=== PATIENT | male | born 1980 | race Caucasian/White ===

== ENCOUNTER 2017-02-16 19:41 | Emergency (ER) | payer OTHER ==
[2017-02-16 21:26] VITALS: BP 130/75
== END 2017-02-16 21:26 | disposition home or self-care (01) ==
LOC: ED 19:41
PROC: 3E0F7GC Introduction of Other Therapeutic Substance into Respiratory Tract, Via Natural or Artificial Opening (ICD-10-PCS; principal; 2017-02-16)
DX: J45.901 Unspecified asthma with (acute) exacerbation (principal)
CPT/HCPCS: J7613; J7644

== ENCOUNTER 2017-05-09 20:25 | Emergency (ER) | payer OTHER ==
[2017-05-09 23:32] VITALS: BP 134/83
== END 2017-05-09 23:32 | disposition home or self-care (01) ==
LOC: ED 20:25
DX: J20.9 Acute bronchitis, unspecified (principal); J45.901 Unspecified asthma with (acute) exacerbation
CPT/HCPCS: J1100; J7620

== ENCOUNTER 2018-03-19 18:57 | Emergency (ER) | payer SELFPAY ==
[~2018-03-19] VITALS: Ht 172.7 cm; Wt 112.5 kg
[2018-03-19 19:16] VITALS: Ht 172.7 cm; Wt 112.5 kg
[2018-03-19 22:23] VITALS: BP 147/99
== END 2018-03-19 22:23 | disposition home or self-care (01) ==
LOC: ED 18:57
DX: J45.901 Unspecified asthma with (acute) exacerbation (principal); Z76.0 Encounter for issue of repeat prescription

== ENCOUNTER 2018-10-27 07:24 | Emergency (ER) | payer MEDICAID ==
[~2018-10-27] VITALS: Ht 172.7 cm; Wt 114.3 kg
[2018-10-27 07:31] VITALS: BP 111/60; Ht 172.7 cm; Wt 114.3 kg
== END 2018-10-27 08:04 | disposition home or self-care (01) ==
LOC: ED 07:24
DX: J45.909 Unspecified asthma, uncomplicated (principal); Z76.0 Encounter for issue of repeat prescription

== ENCOUNTER 2019-02-27 08:21 | Emergency (ER) | payer OTHER ==
[~2019-02-27] VITALS: Ht 172.7 cm; Wt 113.4 kg
[2019-02-27 08:26] VITALS: Ht 172.7 cm; Wt 113.4 kg
[2019-02-27 09:34] VITALS: BP 141/99
== END 2019-02-27 09:41 | disposition home or self-care (01) ==
LOC: ED 08:21
DX: J45.909 Unspecified asthma, uncomplicated (principal); Z76.0 Encounter for issue of repeat prescription

== ENCOUNTER 2019-04-29 06:39 | Emergency (ER) | payer OTHER ==
[~2019-04-29] VITALS: Ht 172.7 cm; Wt 114.8 kg
[2019-04-29 06:45] VITALS: Ht 172.7 cm; Wt 114.8 kg
[2019-04-29 09:40] VITALS: BP 133/77
== END 2019-04-29 09:40 | disposition home or self-care (01) ==
LOC: ED 06:39
DX: J02.0 Streptococcal pharyngitis (principal); J45.909 Unspecified asthma, uncomplicated
CPT/HCPCS: J0561